=== PATIENT | female | born 1975 | race Caucasian/White ===

== ENCOUNTER 2016-12-25 | Inpatient (IN) | payer OTHER ==
[~2016-12-25] VITALS: Ht 165.1 cm; Wt 71.8 kg
[~2016-12-25] MED LIST: AMBIEN10 MG PO; CITRACAL + D M1 EACH PO; CLOBETASOL PROP15 GM TOP; COLACE100 MG PO; DIFLUCAN150 MG PO; DUONEB 3.0-0.5 M3 ML INH; ELIDEL30 GM TOP; FLEXERIL10 MG PO; FLONASE16 GM NASBOTH; MAXALT MLT10 MG PO; MIRALAX17 GM PO; NEXIUM40 MG PO; NIZORAL 2% SHA120 ML TOP; NORVASC10 MG PO; PERIDEX15 ML SSPIT; PULMICORT0.25 MG/2 INH; PULMOZYME1 MG/1 ML INH; SYNTHROID112 MCG PO; ULTRAM50 MG PO; VIOKACE 10,4401 EACH PO; VITAMIN D31000 UNI1 PO; XOPENEX INH; ZOFRAN ODT8 MG PO; ZYVOX600 MG PO; metronidazole TOP
== END 2016-12-27 09:39 | disposition short-term general hospital (02) | DRG 439 ==
PROVIDERS: ADMIT Family Medicine
DX: K85.90 Acute pancreatitis without necrosis or infection, unspecified (principal); E84.9 Cystic fibrosis, unspecified; G47.00 Insomnia, unspecified; K86.1 Other chronic pancreatitis; L20.9 Atopic dermatitis, unspecified; K59.00 Constipation, unspecified; K21.0 Gastro-esophageal reflux disease with esophagitis; I10 Essential (primary) hypertension; E03.9 Hypothyroidism, unspecified; G43.909 Migraine, unspecified, not intractable, without status migrainosus; J45.909 Unspecified asthma, uncomplicated; L71.9 Rosacea, unspecified; L21.9 Seborrheic dermatitis, unspecified; B37.3 Candidiasis of vulva and vagina; E55.9 Vitamin D deficiency, unspecified
CPT/HCPCS: A9150; G0378; G0379; J1200; J2270; J2405